=== PATIENT | male | born 1985 | race Native Hawaiian/Other Pacific Islander ===

== ENCOUNTER 2020-05-25 12:59 | Emergency (ER) | payer OTHER ==
[~2020-05-25] VITALS: Ht 190.5 cm; Wt 98.9 kg
[2020-05-25 13:09] VITALS: BP 132/90; TEMP 98
== END 2020-05-25 14:19 | disposition home or self-care (01) ==
LOC: ED 12:59
DX: K04.7 Periapical abscess without sinus (principal); K08.89 Other specified disorders of teeth and supporting structures
CPT/HCPCS: 96372; 99283; J1885

== ENCOUNTER 2021-03-31 10:36 | Emergency (ER) | payer OTHER ==
[~2021-03-31] VITALS: Ht 190.5 cm; Wt 95.3 kg
[2021-03-31 11:20] VITALS: BP 121/82; TEMP 97.6
== END 2021-03-31 11:20 | disposition home or self-care (01) ==
LOC: ED 10:36
DX: H61.22 Impacted cerumen, left ear (principal)
CPT/HCPCS: 99281

== ENCOUNTER 2022-01-13 08:12 | Emergency (ER) | payer OTHER ==
[~2022-01-13] VITALS: Ht 190.5 cm; Wt 95.3 kg
[2022-01-13 08:16] VITALS: TEMP 97.3
[2022-01-13 09:44] VITALS: BP 122/77
== END 2022-01-13 09:45 | disposition home or self-care (01) ==
LOC: ED 08:12
DX: M54.12 Radiculopathy, cervical region (principal); M25.512 Pain in left shoulder
CPT/HCPCS: 96372; 99283; J1885; J2930

== ENCOUNTER 2022-03-08 08:16 | Emergency (ER) | payer OTHER ==
[~2022-03-08] VITALS: Ht 190.5 cm; Wt 98.4 kg
[2022-03-08 08:38] VITALS: TEMP 98
[2022-03-08 09:21] LABS: PLATELET COUNT 241 K/uL (142-355)
[2022-03-08 09:31] LABS: POTASSIUM 3.8 mmol/L (3.6-5.2)
[2022-03-08] MEDS ORDERED: ONDA4TAB3 PO (10:34)
[2022-03-08 10:38] VITALS: BP 110/60
== END 2022-03-08 10:39 | disposition home or self-care (01) ==
LOC: ED 08:16
PROVIDERS: Emergency Medicine
DX: K52.89 Other specified noninfective gastroenteritis and colitis (principal)
CPT/HCPCS: 80053; 81002; 85027; 96360; 96374; 99284; J2405